=== PATIENT | female | born 1990 | race Caucasian/White ===

== ENCOUNTER 2016-10-15 01:48 | Emergency (ER) | payer OTHER ==
[~2016-10-15] VITALS: Ht 165.1 cm; Wt 57.5 kg
[2016-10-15 02:16] VITALS: Ht 165.1 cm; Wt 57.5 kg
[2016-10-15] MEDS ORDERED: ACETAMINOPHEN 500 MG TAB PO STA (02:51)
--- NOTE | 2016-10-15 03:15 | ERD ---
ER Documentation Chief Complaint Date/Time DATE: 10/15/16 TIME: 03:13 Chief Complaint 5 weeks heavy bleeding and cramps HPI 26-year-old female presents here in emergency department for complaints of vaginal bleeding that started yesterday. Patient describes the bleeding is heavy , was passing clots. Patient is complaining of pelvic pain cramping pain 4/10 scale, accompanying the vaginal bleeding. Patient is 2 para 0 1. Had a miscarriage one year ago. Last menstruation 08/21/2016. Patient had ultrasound done 2 days ago, has copy of it, visualized yolk sac and was told to be normal. Patient denies hematuria or dysuria. Patient denies any fever or chills. Patient denies any flank pain. ROS All systems reviewed and are negative except as per history of present illness. Medications Home Meds Reported Medications [none] Unknown Strength No Conflict Check 10/15/16 Allergies Allergies: Coded Allergies: No Known Allergy (Unverified , 10/15/16) PMhx/Soc Medical and Surgical Hx: pt denies Medical Hx, pt denies Surgical Hx FmHx Family History: No coronary disease, No diabetes, No other Physical Exam Vitals Vital Signs Date Time Temp Pulse Resp B/P Pulse Ox O2 Delivery O2 Flow Rate FiO2 10/15/16 02:16 98.9 78 16 96/57 100 Physical Exam GENERAL: The patient is well developed and appropriate for usual state of health, in no apparent distress. CHEST: Clear to auscultation bilaterally. There are no rales, wheezes or rhonchi. HEART: Regular rate and rhythm. No murmurs, clicks, rubs or gallops. No S3 or S4. ABDOMEN: Soft, nontender and nondistended. Good bowel sounds. No rebound or guarding. No gross peritonitis. No gross organomegaly or masses. No Gill sign or McBurney point tenderness. BACK: No midline or flank tenderness. EXTREMITIES: Equal pulses bilaterally. There is no peripheral clubbing, cyanosis or edema. No focal swelling or erythema. Full range of motion. Grossly neurovascularly intact. NEURO: Alert and oriented. Cranial nerves 2-12 intact. Motor strength in all 4 extremities with 5/5 strength. Sensation grossly intact. Normal speech and gait. SKIN: There is no apparent rash or petechia. The skin is warm and dry. HEMATOLOGIC AND LYMPHATIC: There is no evidence of excessive bruising or lymphedema. No gross cervical, axillary, or inguinal lymphadenopathy. VAGINAL: Moderate amount of blood in the vaginal vault, and the cervical os is closed. No cervical motion tenderness or adnexal tenderness noted. Result Diagram: 10/15/16 0325 Results 24 hrs Laboratory Tests Test 10/15/16 03:25 White Blood Count 12.610^3/ul Red Blood Count 3.9210^6/ul Hemoglobin 12.1g/dl Hematocrit 36.5% Mean Corpuscular Volume 93.1fl Mean Corpuscular Hemoglobin 30.9pg Mean Corpuscular Hemoglobin Concent 33.2g/dl Red Cell Distribution Width 14.4% Platelet Count 30270^3/UL Mean Platelet Volume 10.5fl Neutrophils % 66.7% Lymphocytes % 22.9% Monocytes % 7.7% Eosinophils % 2.0% Basophils % 0.3% Nucleated Red Blood Cells % 0.0/100WBC Neutrophils # 8.410^3/ul Lymphocytes # 2.910^3/ul Monocytes # 1.010^3/ul Eosinophils # 0.310^3/ul Basophils # 0.010^3/ul Nucleated Red Blood Cells # 0.010^3/ul Urine Color YELLOW Urine Clarity CLEAR Urine pH 6.0 Urine Specific [place] 1.014 Urine Ketones NEGATIVEmg/dL Urine Nitrite NEGATIVEmg/dL Urine Bilirubin NEGATIVEmg/dL Urine Urobilinogen NEGATIVEmg/dL Urine Leukocyte Esterase NEGATIVELeu/ul Urine Microscopic RBC 8/HPF Urine Microscopic WBC 1/HPF Urine Hemoglobin 2+mg/dL Urine Glucose NEGATIVEmg/dL Urine Total Protein NEGATIVEmg/dl Beta HCG, Quantitative 6662.9mIU/ml Current Medications Medications (Trade) Dose Ordered Sig/Olivier Route PRN Reason Start Time Stop Time Status Last Admin Dose Admin Acetaminophen (Tylenol Tab) 500 mg ONCE STAT PO 10/15/16 02:51 10/15/16 02:53 DC 10/15/16 04:21 Patient was given medication for pain here in emergency department, after treatment, patient verbalized feeling much better. Patient's pain is improved. PROCEDURE: US pelvis complete and transvaginal CLINICAL INDICATION: Vaginal bleeding. Reported patient. TECHNIQUE: Klein scale and color Doppler imaging of the pelvis was performed. Endovaginal scanning was performed for more detailed evaluation of the endometrium. The images were reviewed on a PACS workstation. COMPARISON: None. FINDINGS: The uterus measures 7.9 x 3.8 x 5.1 centimeters. The right ovary measures 2.6 x 1.3 x 2 centimeters and the left ovary measures 4.5 x 2.8 x 3 centimeters. The endometrial stripe measures 12 millimeters in thickness and heterogeneous echogenicity material is seen in the lower uterine segment and in the cervical canal. No intrauterine gestational sac is seen.. No fibroids are seen. There is a septated 2.6 cm left ovarian cyst. Arterial and color Doppler flow of the ovaries is documented. No definite visualized ectopic . No free fluid is seen. IMPRESSION: Probable blood within the endometrial end of the cervical canal without visualized ectopic or intrauterine gestational sac. Ectopic cannot be excluded. RPTAT: [facility] Physician Paz Date Time Electronically viewed and signed by Isabelle Richardson Physician on 10/15/2016 04 :17 LE/ CC: PRAVIN KILLIAN [employer] SERVICER Procedures/MDM Medical Decision Making: Patients vaginal bleeding is most likely consistent of possible threatened . Patient does not show any evidence of hypovolemic shock. Patients hemoglobin and hematocrit is stable. Patient's pelvic pain is controlled, does not complain of abdominal pain, abdominal exam is normal. There is low suspicion for ectopic . EULOGIO results show no intrauterine , ultrasound image done 2 days ago was reviewed, yolk sac was present, at this time, no intrauterine most likely consistent with spontaneous . BetaHCG Quantitative is still elevated, mostly patient just passed the tissue. The patient is Rh+, does not need RhoGAM this time. There is no signs of symptoms of dehydration. There is low suspicion for sepsis. Patient appears well and is hemodynamically stable. Disposition: Home. Condition: Stable Prescription: Tylenol Instructions: Patient is advised to do bed rest, avoid heavy lifting, and avoid having sex until cleared by OB doctor. Patient is advised to follow up with OB doctor or here at the ER in 48 hours for reevaluation of symptoms, repeat beta HCG quantitative and ultrasound. Patient is advised that is symptoms are worst, severe bleeding, dizziness, severe abdominal pain, fever, worst signs and symptoms to return to the emergency department immediately. Departure Diagnosis: Primary Impression: Threatened Condition: Stable Patient Instructions: Possible Miscarriage (Threatened ) Additional Instructions: Patient is advised to do bed rest, avoid heavy lifting, and avoid having sex until cleared by OB doctor. Patient is advised to follow up with OB doctor or here at the ER in 48 hours for reevaluation of symptoms, repeat beta HCG quantitative and ultrasound. Patient is advised that is symptoms are worst, severe bleeding, dizziness, severe abdominal pain, fever, worst signs and symptoms to return to the emergency department immediately. PRAVIN KILLIAN NP Oct 15, 2016 03:15
[2016-10-15 03:48] LABS: ADD SCAN DIFF NO
[2016-10-15 04:13] LABS: BASOPHILS % 0.3 % (0.0-2.0); EOSINOPHILS # 0.3 10^3/ul (0.0-0.5); HEMATOCRIT 36.5 % (37.0-47.0); HEMOGLOBIN 12.1 g/dl (12.0-16.0); LYMPHOCYTES # 2.9 10^3/ul (0.8-2.9); LYMPHOCYTES % 22.9 % (15.0-51.0); MEAN CORPUSCULAR HEMOGLOBIN 30.9 pg (29.0-33.0); MEAN CORPUSCULAR HGB CONC 33.2 g/dl (32.0-37.0); MEAN CORPUSCULAR VOLUME 93.1 fl (82.0-101.0); MEAN PLATELET VOLUME 10.5 fl (7.4-10.4); MONOCYTES % 7.7 % (0.0-11.0); NEUTROPHIL # 8.4 10^3/ul (1.6-7.5); NEUTROPHILS % 66.7 % (39.0-77.0); PLATELET COUNT 359 10^3/UL (140-415); RED BLOOD COUNT 3.92 10^6/ul (4.20-5.40); RED CELL DISTRIBUTION WIDTH 14.4 % (11.5-14.5); WHITE BLOOD COUNT 12.6 10^3/ul (4.8-10.8)
--- NOTE | 2016-10-15 04:17 | RADRPT ---
PROCEDURE: US pelvis complete and transvaginal CLINICAL INDICATION: Vaginal bleeding. Reported patient. TECHNIQUE: Klein scale and color Doppler imaging of the pelvis was performed. Endovaginal scanning was performed for more detailed evaluation of the endometrium. The images were reviewed on a PACS workstation. COMPARISON: None. FINDINGS: The uterus measures 7.9 x 3.8 x 5.1 centimeters. The right ovary measures 2.6 x 1.3 x 2 centimeters and the left ovary measures 4.5 x 2.8 x 3 centimeters. The endometrial stripe measures 12 millimet ers in thickness and heterogeneous echogenicity material is seen in the lower uterine segment and in the cervical canal. No intrauterine gestational sac is seen.. No fibroids are seen. There is a sep tated 2.6 cm left ovarian cyst. Arterial and color Doppler flow of the ovaries is documented. No d efinite visualized ectopic . No free fluid is seen. IMPRESSION: Probable blood within the endometrial end of the cervical canal without visualized ectopic or intrauterine gestational sac. Ectopic cannot be excluded. RPTAT: [facility] Physician Paz Date Time Electronically viewed and signed by Physician Paz on 10/15/2016 04:17 LE/
[2016-10-15 04:26] LABS: ADD UMIC YES; UR ASCORBIC ACID NEGATIVE (NEGATIVE); UR BILIRUBIN (Dip) NEGATIVE (NEGATIVE); UR BLOOD (Dip) 2+ mg/dL (NEGATIVE); UR CLARITY CLEAR (CLEAR); UR COLOR YELLOW (YELLOW); UR GLUCOSE (Dip) NEGATIVE (NEGATIVE); UR KETONES (Dip) NEGATIVE (NEGATIVE); UR LEUKOCYTE ESTERASE (Dip) NEGATIVE Leu/ul (NEGATIVE); UR NITRITE (Dip) NEGATIVE (NEGATIVE); UR RBC 8 /HPF (0-5); UR SPECIFIC GRAVITY (Dip) 1.014 (1.003-1.030); UR TOTAL PROTEIN (Dip) NEGATIVE (NEGATIVE); UR UROBILINOGEN (Dip) NEGATIVE (NEGATIVE)
[2016-10-15] MEDS ORDERED: ACET500C5 PO (05:19)
[2016-10-15 06:05] VITALS: BP 86/50; PULSE 68; RESP 18; TEMP 98.1
== END 2016-10-15 06:00 | disposition home or self-care (01) ==
LOC: FTE 01:48
DX: O20.0 Threatened abortion (principal); R10.2 Pelvic and perineal pain; Z3A.01 Less than 8 weeks gestation of pregnancy
CPT/HCPCS: 36415; 76801; 76817; 81001; 84702; 85025; 86900; 86901; Z7502; Z7610